=== PATIENT | female | born 1970 | race Caucasian/White ===

== ENCOUNTER 2019-09-27 05:13 | Emergency (ER) | payer SELFPAY ==
[~2019-09-27] VITALS: Ht 162.6 cm; Wt 85.3 kg
[2019-09-27 05:18] VITALS: Ht 162.6 cm; Wt 85.3 kg
[2019-09-27 05:30] VITALS: BP 132/81
== END 2019-09-27 05:39 | disposition home or self-care (01) ==
LOC: ED 05:13
DX: G40.909 Epilepsy, unspecified, not intractable, without status epilepticus (principal); M62.838 Other muscle spasm; Z76.0 Encounter for issue of repeat prescription